=== PATIENT | female | born 1990 | race American Indian/Alaskan Native ===

== ENCOUNTER 2017-04-30 19:45 | Emergency (ER) | payer MEDICAID ==
[2017-04-30] MEDS ORDERED: Acetaminophen/HYDROcodone 325-10 MG Tab PO ONE (20:11)
[2017-04-30] MEDS ORDERED: Clindamycin HCl 150 MG Cap PO ONE (20:11)
--- NOTE | 2017-04-30 20:16 | EDM.PDOC ---
ED HPI GENERAL MEDICAL PROBLEM - General Chief Complaint: ENT Problem Stated Complaint: MOUTH PAIN, [id number] Time Seen by Provider: 04/30/17 20:12 Source of Information: Reports: Patient History Limitations: Reports: No Limitations - History of Present Illness INITIAL COMMENTS - FREE TEXT/NARRATIVE: long h/o worsening tooth problem. Right Oral/Mouth Pain Score (Numeric/FACES): 8 - Related Data Allergies Allergy/AdvReac Type Severity Reaction Status Date / Time No Known Allergies Allergy Verified 04/30/17 19:53 Past Medical History - Past Health History Medical/Surgical History: Denies Medical/Surgical History Gastrointestinal History: Reports: Cholelithiasis - Past Surgical History Female Surgical History: Reports: D&C Social & Family History - Family History Family Medical History: Noncontributory - Tobacco Use Smoking Status *Q: Current Every Day Smoker Years of Tobacco use: 10 Packs/Tins Daily: 1 Second Hand Smoke Exposure: No - Caffeine Use Caffeine Use: Reports: Energy Drinks, Soda - Recreational Drug Use Recreational Drug Use: No ED ROS ENT - Review of Systems Review Of Systems: ROS reveals no pertinent complaints other than HPI. ED EXAM, ENT - Physical Exam Exam: See Below Exam Limited By: No Limitations General Appearance: Alert, WD/WN, Moderate Distress, Other (pain) Ears: Hearing Grossly Normal Mouth/Throat: Dental Abcess, Dental Pain, Dental Tenderness Head: Atraumatic Neck: Non-Tender, Full Range of Motion Respiratory/Chest: No Respiratory Distress Cardiovascular: Regular Rate, Rhythm GI/Abdominal: Soft, Non-Tender Neurological: Alert, Oriented, Normal Cognition, Normal Gait, No Motor/Sensory Deficits Psychiatric: Tearful Skin: Warm, Dry, Normal Color Lymphatic: No Adenopathy Course - Vital Signs Last Recorded V/S: Last Vital Signs Temp 36.7 C 04/30/17 19:49 Pulse 93 04/30/17 19:49 Resp 16 04/30/17 19:49 BP 128/93 H 04/30/17 19:49 Pulse Ox 100 04/30/17 19:49 - Orders/Labs/Meds Orders: Active Orders 24 hr Category Date Time Status Acetaminophen/HYDROcodone [Powersite 325-10 MG] Med 04/30/17 20:11 Once 1 tab PO ONETIME ONE Clindamycin HCl [Cleocin] Med 04/30/17 20:11 Once 300 mg PO ONETIME ONE Departure - Departure Time of Disposition: 20:14 Disposition: Home, Self-Care 01 Condition: Good Clinical Impression: Dental abscess, Dental caries, Dental caries extending into dentin - Discharge Information Instructions: Dental Abscess, [id number] Additional Instructions: 1) avoid sodas, candies, solid foods 2) see DENTIST TOMORROW. rx given; clindamycin 150mg qid x 40 vicodin 5/325mg bid prn x 12 - My Orders Last 24 Hours: My Active Orders 04/30/17 20:11 Acetaminophen/HYDROcodone [Powersite 325-10 MG] 1 tab PO ONETIME ONE Clindamycin HCl [Cleocin] 300 mg PO ONETIME ONE - Assessment/Plan Last 24 Hours: My Active Orders 04/30/17 20:11 Acetaminophen/HYDROcodone [Powersite 325-10 MG] 1 tab PO ONETIME ONE Clindamycin HCl [Cleocin] 300 mg PO ONETIME ONE
== END 2017-04-30 20:25 | disposition home or self-care (01) ==
LOC: DL.ED 19:45
DX: K04.7 Periapical abscess without sinus (principal); K02.9 Dental caries, unspecified; F17.210 Nicotine dependence, cigarettes, uncomplicated
CPT/HCPCS: 99282; A9270

== ENCOUNTER 2017-05-14 16:18 | Emergency (ER) | payer SELFPAY ==
[2017-05-14] MEDS ORDERED: Ketorolac 30 MG/ML SDV IM ONE (17:05)
[2017-05-14] MEDS ORDERED: Lidocaine 2% Viscous Solution 15 ML Cup PO ONE (17:07)
--- NOTE | 2017-05-14 17:13 | EDM.PDOC ---
Scribed by Renae Madison 05/14/17 [id number] for Little Castano NP ED HPI GENERAL MEDICAL PROBLEM - General Chief Complaint: General Stated Complaint: MOUTH IS PAINFUL, [id number] Time Seen by Provider: 05/14/17 17:00 Source of Information: Reports: Patient, RN, RN Notes Reviewed History Limitations: Reports: No Limitations - History of Present Illness INITIAL COMMENTS - FREE TEXT/NARRATIVE: Patient complains of left sided dental pain/upper and lower. Pain first began yesterday. Pain is 10/10 and head is pounding. She has fever, chills, vomiting and nausea. No diarrhea, chest pains or SOB. She denies . Location: Reports: Other (mouth) Quality: Reports: Ache Severity: Severe Improves with: Reports: None Worsens with: Reports: None Associated Symptoms: Reports: No Other Symptoms Left Gums Pain Score (Numeric/FACES): 8 - Related Data Allergies Allergy/AdvReac Type Severity Reaction Status Date / Time No Known Allergies Allergy Verified 05/14/17 16:28 Home Meds: Home Meds . [No Known Home Meds] 05/14/17 [History] Past Medical History - Past Health History Medical/Surgical History: Denies Medical/Surgical History Gastrointestinal History: Reports: Cholelithiasis - Past Surgical History Female Surgical History: Reports: D&C Social & Family History - Family History Family Medical History: Noncontributory - Tobacco Use Smoking Status *Q: Current Every Day Smoker Years of Tobacco use: 6 Packs/Tins Daily: 1 Second Hand Smoke Exposure: No - Caffeine Use Caffeine Use: Reports: Coffee, Soda - Recreational Drug Use Recreational Drug Use: No ED ROS GENERAL - Review of Systems Review Of Systems: ROS reveals no pertinent complaints other than HPI. ED EXAM, GENERAL - Physical Exam Exam: See Below Exam Limited By: No Limitations General Appearance: Alert, WD/WN, No Apparent Distress Eye Exam: Bilateral Eye: Normal Inspection Ears: Normal External Exam, Normal Canal, Hearing Grossly Normal, Normal TMs Nose: Normal Inspection, Normal Mucosa, No Blood Throat/Mouth: Normal Inspection, Normal Lips, Normal Teeth, Normal Gums, Normal Oropharynx, Normal Voice, No Airway Compromise Head: Atraumatic, Normocephalic Neck: Lymphadenopathy (L) Respiratory/Chest: No Respiratory Distress, Lungs Clear, Normal Breath Sounds, No Accessory Muscle Use, Chest Non-Tender Cardiovascular: Normal Peripheral Pulses, Regular Rate, Rhythm, No Edema, No Gallop, No JVD, No Murmur, No Rub GI/Abdominal: Normal Bowel Sounds, Soft, Non-Tender, No Organomegaly, No Distention, No Abnormal Bruit, No Mass (Female) Exam: Deferred Rectal (Female) Exam: Deferred Back Exam: Normal Inspection, Full Range of Motion, NT Extremities: Normal Inspection, Normal Range of Motion, Non-Tender, Normal Capillary Refill, No Pedal Edema Neurological: Alert, Oriented, CN II-XII Intact, Normal Cognition, Normal Gait, Normal Reflexes, No Motor/Sensory Deficits Psychiatric: Normal Affect, Normal Mood Skin Exam: Warm, Dry, Intact, Normal Color, No Rash Lymphatic: Adenopathy (left) Course - Vital Signs Last Recorded V/S: Last Vital Signs Temp 97.9 F 05/14/17 16:28 Pulse 84 05/14/17 16:28 Resp 16 05/14/17 16:28 BP 127/71 05/14/17 16:28 Pulse Ox 100 05/14/17 16:28 - Orders/Labs/Meds Meds: Medications Discontinued Medications Generic Name Dose Route Start Last Admin Trade Name Onelq PRN Reason Stop Dose Admin Ketorolac Tromethamine 60 mg 05/14/17 17:05 Toradol IM 05/14/17 17:06 ONETIME ONE Lidocaine HCl 15 ml 05/14/17 17:07 Xylocaine 2% Viscous PO 05/14/17 17:08 ONETIME ONE Departure - Departure Time of Disposition: 17:11 Disposition: Home, Self-Care 01 Condition: Good Clinical Impression: Dental caries extending into dentin, Pain, dental - Discharge Information Instructions: Dental Caries, [id number] Forms: ED Department Discharge Additional Instructions: RX: Viscous lidocaine 2% Follow up with Dentist ORI I have read and agree with the documentation that has been completed regarding this visit. By signing this record, I attest that the documentation was completed in my physical presence and is an accurate record of the encounter.
== END 2017-05-14 17:21 | disposition home or self-care (01) ==
LOC: DL.ED 16:18
DX: K02.9 Dental caries, unspecified (principal); F17.210 Nicotine dependence, cigarettes, uncomplicated
CPT/HCPCS: 96372; 99282; A9270; J1885

== ENCOUNTER 2017-05-22 14:15 | Emergency (ER) | payer MEDICAID | END 2017-05-22 16:51 | disposition left against medical advice (07) | LOC: DL.ED 14:15 | DX: Z53.21 Procedure and treatment not carried out due to patient leaving prior to being seen by health care provider (principal) ==